=== PATIENT | male | born 1975 | race Caucasian/White ===

== ENCOUNTER → 2021-01-07 | Outpatient (CLI) | payer BC ==
[~2021-01-07] MED LIST: METFORMIN; PROVENTIL
== END ==
LOC: SJCVCIMAG 08:19
PROVIDERS: ATTEND Internal Medicine Cardiovascular Disease
DX: I49.3 Ventricular premature depolarization (principal); R93.1 Abnormal findings on diagnostic imaging of heart and coronary circulation; R06.02 Shortness of breath; R53.83 Other fatigue; I25.10 Atherosclerotic heart disease of native coronary artery without angina pectoris